=== PATIENT | male | born 1995 | race Caucasian/White ===

== ENCOUNTER 2018-08-11 18:02 | Emergency (ER) | payer MEDICAID, OTHER ==
[~2018-08-11] VITALS: Ht 182.9 cm; Wt 93.3 kg
[2018-08-11 18:07] VITALS: BP 137/87
== END 2018-08-11 18:54 | disposition home or self-care (01) ==
LOC: ED 18:47
DX: L20.9 Atopic dermatitis, unspecified (principal)
CPT/HCPCS: 99283

== ENCOUNTER 2018-10-03 21:28 | Emergency (ER) | payer MEDICAID ==
[~2018-10-03] VITALS: Ht 182.9 cm; Wt 95.0 kg
[2018-10-03 21:42] VITALS: BP 124/85
== END 2018-10-03 23:32 | disposition home or self-care (01) ==
LOC: ED 23:30
DX: S83.92XA Sprain of unspecified site of left knee, initial encounter (principal); X58.XXXA Exposure to other specified factors, initial encounter; Y93.89 Activity, other specified; Y92.89 Other specified places as the place of occurrence of the external cause; Y99.8 Other external cause status
CPT/HCPCS: 29505; 99283